=== PATIENT | female | born 2005 | race Two or more races ===

== ENCOUNTER 2025-06-29 22:58 | Emergency (ER) | payer SELFPAY ==
[~2025-06-29] VITALS: Ht 160 cm; Wt 61.9 kg
[2025-06-29 23:00] VITALS: TEMP 98.1
[2025-06-30] MEDS ORDERED: cefTRIAXone SOD 1,000 MG VL IM ONE (01:30)
[2025-06-30 01:51] LABS: Urine Protein, UAD Negative (Negative)
[2025-06-30] MEDS ORDERED: IBUP-1454 PO (02:13)
[2025-06-30] MEDS ORDERED: BACDST PO (02:13)
--- NOTE | 2025-06-30 02:14 | ED.PDOC ---
General HPI Comments 20-year-old female presents to the ED chief complaint urinary symptoms. Patient reports burning follow odor with urination x2 days. Fever chills nausea vomiting or back pain. Chief Complaint: Urinary Time Seen by MD: 23:03 Reviewed notes: Nurses Notes, Medications, Allergies Information Source: Patient Mode of Arrival: Ambulatory All Other Systems: Reviewed and Negative (see hpi) Physical Exam General Appearance: No Apparent Distress, Normal HEENT: Pharynx Normal Neck: Full Range of Motion, Non-Tender Respiratory: Lungs Clear, No Respiratory Distress, Normal Breath Sounds Cardiovascular: No Murmur, Normal Peripheral Pulses, Regular Rate/Rhythm Breast Exam: Deferred Gastrointestinal: No Organomegaly, Non Tender, No Pulsatile Mass, Normal Bowel Sounds, Soft, Suprapubic (tenderness), Other (Negative CVA tenderness) Genitalia: Deferred Pelvic: Deferred Rectal: Deferred Extremities: Normal range of motion Musculoskeletal : Apperance: Normal Neurologic: Alert, No Motor Deficits, Normal Affect, Normal Mood, No Sensory Deficits Cerebellar Function: Normal Reflexes: NOT DONE Skin: Dry, Normal Color, Warm Lymphatic: No Adenopathy Was a procedure done? Was a procedure done?: No Differential Diagnosis Kidney stone (Female): Urinary obstruction, Urolithiasis Urinary Problem (Female): UTI X-Ray, Labs, Meds, VS Vital Signs Date Time Temp Pulse Resp B/P (MAP) Pulse Ox O2 Delivery O2 Flow Rate FiO2 06/29/25 23:00 98.1 99 16 130/90 95 98.1 Lab Test 06/29/25 23:08 Range/Units Urine Color Dark-yellow Yellow Urine Clarity Turbid H Clear Urine pH 6.5 5.0-9.0 Urine Specific [place] 1.002 1.001-1.035 Urine Protein Negative Negative Urine Ketones Negative Negative Urine Blood Negative Negative /uL Urine Nitrite Negative Negative Urine Bilirubin Negative Negative Urine Urobilinogen Normal Negative mg/dL Urine Leukocyte Esterase Negative Negative /uL Urine RBC None seen 0 - 4 /hpf Urine Microscopic WBC 3 0-5 /HPF Urine Squamous Epithelial Cells Few <5 /hpf Urine Bacteria None seen None Seen /hpf Urine Glucose Normal Normal mg/dL X-Ray, Labs, Meds, VS Comment UA positive for infection. Patient given Bactrim. Script trial of Bactrim x7 days advised take medication as prescribed side effects discussed advised to increase p.o. fluids avoid caffeinated drinks follow up with PCP in 2-3 days consider repeat urine and culture ER return precautions given patient indicates understanding agrees with Time of 1ST Reevaluation: 23:03 Reevaluation 1ST: Unchanged Time of 2ND Reevaluation: 02:11 Reevaluation 2ND: Improved Patient Education/Counseling: Diagnosis, Treatment, Need For Follow Up Family Education/Counseling: No Family Present SEPSIS Sepsis Screen Date sepsis recognized/suspect: Jun 29, 2025 Time Sepsis recognized/suspect: 2302 Recent Procedure: No On Antibiotic Therapy: No Respiratory Rate >20: No Heart Rate >90: No Temp<36 C (96.8 F) or >38.3 C: No SBP <90 or MAP <65 mmHG: No New Acute Mental Status Change: No Is the patient on CPAP, BIPAP,: No Vital Signs Date Time Temp Pulse Resp B/P (MAP) Pulse Ox O2 Delivery O2 Flow Rate FiO2 06/29/25 23:00 98.1 99 16 130/90 95 98.1 Departure 1 Departure Time of Disposition: 02:11 Impression: Primary Impression: Cystitis Disposition: 01 HOME / SELF CARE / HOMELESS Condition: Stable e-Prescriptions Ibuprofen (Ibuprofen) 600 Mg Tab 600 MG PO TID PRN for 5 Days, #15 TAB Prov: LIZZIE ELKINS 06/30/25 Sulfamethoxazole W/Trimethopri (Bactrim Ds Tablet) 1 Tab Tb 1 TAB PO BID for 5 Days, #10 TAB Prov: LIZZIE ELKINS 06/30/25 Discharged With: Self Critical Care Note Critical Care Time?: No Stability Stability form required: LIZZIE Hunter Jun 30, 2025 02:13
[2025-06-30] MEDS: SULFAMETHOX W/TRIMETH(800/160MG) DS TAB PO ONE (02:15)
[2025-06-30 02:20] VITALS: BP 110/70; PULSE 72; RESP 16; O2SAT 95
== END 2025-06-30 02:25 | disposition home or self-care (01) ==
LOC: ER 22:58
DX: N30.90 Cystitis, unspecified without hematuria (principal)
CPT/HCPCS: 81001